=== PATIENT | male | born 1970 | race African-American/Black ===

== ENCOUNTER 2020-07-30 17:11 | Emergency (ER) | payer OTHER ==
[~2020-07-30] VITALS: Wt 103.0 kg
[2020-07-30 17:59] LABS: BASO # 0.1 10*3/uL (0.0-0.1); BASO % 0.4 % (0.0-1.0); EOS # 0.1 10*3/uL (0.0-0.4); EOS % 0.5 % (1.0-4.0); HEMATOCRIT 42.8 % (42.0-52.0); LYMPH # 1.3 10*3/uL (1.3-4.4); MEAN CELL VOLUME 91.5 fl (80.0-94.0); MEAN CORPUSCULAR HGB 29.7 pg (27.0-31.0); MEAN CORPUSCULAR HGB CONC 32.5 g/dl (33.0-37.0); MONO # 1.3 10*3/uL (0.1-1.0); NEUT % 80.8 % (47.0-73.0); PLATELET COUNT AUTOMATED 344 10*3/uL (130-400); RED BLOOD COUNT 4.68 10*6/uL (4.50-5.90); RED CELL DISTRI WIDTH 11.6 % (0-14.5); WHITE BLOOD COUNT 14.8 10*3/uL (4.8-10.8)
[2020-07-30 18:18] LABS: ALBUMIN 3.6 gm/dl (3.1-4.5); ALKALINE PHOSPHATASE 142 U/L (45-117); BUN 5 mg/dl (7-24); CHLORIDE 101 mmol/L (98-107); CREATININE 0.65 mg/dL (0.70-1.30); POTASSIUM 3.6 mmol/L (3.5-5.1); SGOT/AST 8 IU/L (3-35); SGPT/ALT 20 U/L (12-78); SODIUM 136 mmol/L (136-145); TOTAL PROTEIN 8.4 gm/dL (6.4-8.2)
== END 2020-07-30 20:36 | disposition short-term general hospital (02) ==
LOC: ED 17:11
PROVIDERS: Physician Assistant
DX: J36 Peritonsillar abscess (principal); Z88.0 Allergy status to penicillin

== ENCOUNTER 2022-08-04 09:41 | Emergency (ER) | payer OTHER ==
[~2022-08-04] VITALS: Ht 175.2 cm; Wt 97.5 kg
[2022-08-04] MEDS ORDERED: CYCLOBENZAPRINE10 MG PO (11:36)
== END 2022-08-04 11:48 | disposition home or self-care (01) ==
LOC: ED 09:41
DX: M62.838 Other muscle spasm (principal); Z88.0 Allergy status to penicillin

== ENCOUNTER → 2023-06-08 | Outpatient (CLI) | payer OTHER ==
[~2023-06-08] MED LIST: CYCLOBENZAPRINE10 MG PO
[2023-06-08 09:16] LABS: BASO # 0.1 10*3/uL (0.0-0.1); BASO % 0.8 % (0.0-1.0); EOS # 0.2 10*3/uL (0.0-0.4); EOS % 2.5 % (1.0-4.0); HEMATOCRIT 42.9 % (42.0-52.0); LYMPH # 1.9 10*3/uL (1.3-4.4); MEAN CELL VOLUME 90.9 fl (80.0-94.0); MEAN CORPUSCULAR HGB 30.5 pg (27.0-31.0); MEAN CORPUSCULAR HGB CONC 33.6 g/dl (33.0-37.0); MEAN PLATELET VOLUME 10.4 fl (9.6-12.3); MONO # 0.5 10*3/uL (0.1-1.0); MONO % 7.3 % (3.0-9.0); NEUT # 3.9 10*3/uL (2.3-7.9); NEUT % 59.9 % (47.0-73.0); PLATELET COUNT AUTOMATED 308 10*3/uL (130-400); RED BLOOD COUNT 4.72 10*6/uL (4.50-5.90); RED CELL DISTRI WIDTH 11.8 % (0-14.5); WHITE BLOOD COUNT 6.4 10*3/uL (4.8-10.8)
[2023-06-08 09:45] LABS: ALKALINE PHOSPHATASE 132 U/L (46-116); BUN 7 mg/dl (9-23); CHLORIDE 101 mmol/L (98-107); FREE T4 1.14 ng/dl (0.89-1.76); POTASSIUM 4.1 mmol/L (3.4-5.1); SGPT/ALT 25 U/L (10-49); TOTAL PROTEIN 7.9 gm/dL (6.0-8.0)
== END | disposition home or self-care (01) ==
LOC: LAB 08:37
PROVIDERS: ATTEND Internal Medicine
DX: M25.561 Pain in right knee (principal); E11.65 Type 2 diabetes mellitus with hyperglycemia; N40.1 Benign prostatic hyperplasia with lower urinary tract symptoms